=== PATIENT | male | born 1960 | race Caucasian/White ===

== ENCOUNTER 2018-10-21 13:20 | Emergency (ER) | payer OTHER ==
[2018-10-21 13:36] VITALS: BP 147/74
--- NOTE | 2018-10-21 14:09 | RAD ---
Indication:PATIENT HIT POSTERIOR OF HAND ON END OF SHOVEL LAST NIGHT. COULD NOT REMOVE RING. TECHNIQUE: 3 views of left hand COMPARISON:None FINDINGS/ impression: No acute fracture or dislocation. Couple of metallic nishant are seen in the soft tissue of the web of the fourth and fifth finger. Electronically signed by: Richard Campbell DO (10/21/2018 2:04 PM) [id number]
--- NOTE | 2018-10-21 14:19 | PHYS DOC ---
Past History Past Medical History: Hypertension, Other Past Surgical History: Other Alcohol Use: None Drug Use: None Adult General Chief Complaint Chief Complaint: HAND PROBLEM HPI HPI Patient is a 58 year old right handed male who presents with obtaining of injury to left hand yesterday while shoveling snow and ice and was hit by piece of ice on left hand. Patient complaining of moderate pain in his hand without other injuries and focal neurodeficit. Review of Systems Review of Systems Constitutional: Denies fever or chills [] Eyes: Denies change in visual acuity, redness, or eye pain [] HENT: Denies nasal congestion or sore throat [] Respiratory: Denies cough or shortness of breath [] Cardiovascular: No additional information not addressed in HPI [] GI: Denies abdominal pain, nausea, vomiting, bloody stools or diarrhea [] : Denies dysuria or hematuria [] Musculoskeletal: Denies back pain , reports joint pain [] Integument: Denies rash or skin lesions [] Neurologic: Denies headache, focal weakness or sensory changes [] Endocrine: Denies polyuria or polydipsia [] All other systems were reviewed and found to be within normal limits, except as documented in this note. Allergies Allergies Allergies Coded Allergies Type Severity Reaction Last Updated Verified ibuprofen Allergy Intermediate rash 10/22/14 Yes aspirin Allergy Mild red rash 10/22/14 Yes Physical Exam Physical Exam Constitutional: Well developed, well nourished, no acute distress, non-toxic appearance. [] HENT: Normocephalic, atraumatic Eyes: PERRLA, EOMI, conjunctiva normal, no discharge. [] Neck: Normal range of motion, no tenderness, supple, no stridor. [] Cardiovascular:Heart rate regular rhythm, no murmur [] Lungs & Thorax: Bilateral breath sounds clear to auscultation [] Skin: Warm, dry, no erythema, no rash. [] Back: No tenderness, no CVA tenderness. [] Extremities: Left hand without deformity, interpreted and fourth metacarpal area. Neurologic: Alert and oriented X 3, normal motor function, normal sensory function, no focal deficits noted. [] Psychologic: Affect normal, judgement normal, mood normal. [] Current Patient Data Vital Signs Vital Signs Date Time Temp Pulse Resp B/P (MAP) Pulse Ox O2 Delivery O2 Flow Rate FiO2 10/21/18 13:36 79 18 97 Room Air EKG EKG [] Radiology/Procedures Radiology/Procedures [place] [id number] IMAGING REPORT Signed PATIENT: RADHA CAGE ACCOUNT: [id number] : 1960 LOCATION: ER AGE: 58 SEX: M EXAM STATUS: REG ER ORD. PHYSICIAN: DESTINY JACKSON MD REASON: injury PROCEDURE: HAND LEFT 3V Indication:PATIENT HIT POSTERIOR OF HAND ON END OF SHOVEL LAST NIGHT. COULD NOT REMOVE RING. TECHNIQUE: 3 views of left hand COMPARISON:None FINDINGS/ impression: No acute fracture or dislocation. Couple of metallic nishant are seen in the soft tissue of the web of the fourth and fifth finger. Electronically signed by: Richard Campbell DO (10/21/2018 2:04 PM) [id number] DICTATED AND SIGNED BY: RICHARD CAMPBELL DO DATE: 10/21/18 1402 CC: DESTINY JACKSON MD; MOUNIKA LEON ~ Course & Med Decision Making Course & Med Decision Making Pertinent Imaging studies reviewed. (See chart for details) discharge: I've spoken with the patient and/or caregivers. I've explained the patient's condition, diagnosis and treatment plan based on information available to me at this time. I've answered the patient's and/or caregivers questions and addressed any concerns. The patient and/or caregivers have a good understanding the patient's diagnosis, condition and treatment plan as can be expected at this point. Vital signs have been stabilized. The patient's condition is stable for discharge from the emergency department. The patient will pursue further outpatient evaluation with her primary care provider or other designated consulting physician as outlined in the discharge instructions. Patient and/or caregivers are agreeable to this plan of care and follow-up instructions have been explained in detail. The patient and/or caregivers have received these instructions in written format and expressed understanding of these discharge instructions. The patient and her caregivers are aware that if any significant change in condition or worsening of symptoms should prompt him to immediately return to this of the closest emergency department. If an emergent department is not readily available I would encourage him to call 911. Sowmya Disclaimer Sowmya Disclaimer This electronic medical record was generated, in whole or in part, using a voice recognition dictation system. Departure Departure: Impression: Primary Impression: Injury of left hand Additional Impressions: Contusion of left hand Tobacco abuse Tobacco abuse counseling Disposition: HOME, SELF-CARE (at 1416) Condition: STABLE Referrals: MOUNIKA LEON (PCP) Patient Instructions: Hand Contusion, Smoking Cessation, Tips For Success Additional Instructions: Apply ice on left hand Follow-up with your primary care physician in 3-5 days Return to ER if not getting better Problem Qualifiers DESTINY JACKSON MD Oct 21, 2018 14:19
== END 2018-10-21 14:19 | disposition home or self-care (01) ==
LOC: ER 13:20
DX: S60.222A Contusion of left hand, initial encounter (principal); I10 Essential (primary) hypertension; Z72.0 Tobacco use; Z71.6 Tobacco abuse counseling; Z88.6 Allergy status to analgesic agent; W22.8XXA Striking against or struck by other objects, initial encounter; Y93.H1 Activity, digging, shoveling and raking; Y92.89 Other specified places as the place of occurrence of the external cause; Y99.8 Other external cause status
CPT/HCPCS: 73130; 99283

== ENCOUNTER 2021-08-02 20:06 | Emergency (ER) | payer OTHER ==
[~2021-08-02] VITALS: Ht 170.2 cm; Wt 55.5 kg
[2021-08-02] MEDS ORDERED: GELATIN SPONGE SIZE 12-7MM SPONGE. ONE (20:23)
[2021-08-02] MEDS ORDERED: GELATIN SPONGE SIZE 100. TP ONE (20:30)
[2021-08-02] MEDS ORDERED: GELATIN SPONGE SIZE 12-7MM SPONGE. TP ONE (20:45)
--- NOTE | 2021-08-02 21:24 | PHYS DOC ---
Past History Past Medical History: Hypertension, Other (ALIS LINN APRN) Past Surgical History: Other Additional Past Surgical Histo: BACK SX (ALIS LINN APRN) Alcohol Use: None Drug Use: None (ALIS LINN APRN) Adult General Chief Complaint Chief Complaint: LOWEREXTREMITY INJURY HPI HPI Patient is a 61-year-old male patient presenting to the ED today complaining of bleeding from a varicose vein. Patient states he took a shower and was wiping himself with a towel and accidentally nicked a varicose vein behind the left knee. Patient states he is on aspirin 1 mg daily. (ALIS LINN APRN) Review of Systems Review of Systems Constitutional: Denies fever or chills [] Musculoskeletal: Denies back pain or joint pain [] Integument: Reports bleeding from a varicose vein Neurologic: Denies headache, focal weakness or sensory changes [] All other systems were reviewed and found to be within normal limits, except as documented in this note. (ALIS LINN APRN) Current Medications Current Medications Current Medications Medications (Trade) Dose Ordered Sig/Heber Start Time Stop Time Status Last Admin Dose Admin Gelatin (Gelfoam Size 12-7mm) 1 each 1X ONCE 08/02/21 20:45 08/02/21 20:46 DC 08/02/21 20:44 1 EACH Gelatin (Gelfoam Size 100) 1 each 1X ONCE 08/02/21 20:30 08/02/21 20:37 DC 08/02/21 20:24 1 EACH Lidocaine/ Epinephrine (Xylocaine 1%-Epi 1:100,000) 20 ml 1X ONCE 08/02/21 21:30 08/02/21 21:31 08/02/21 21:04 20 ML (ALIS LINN APRN) Allergies Allergies Allergies Coded Allergies Type Severity Reaction Last Updated Verified ibuprofen Allergy Intermediate rash 10/22/14 Yes (ALIS LINN APRN) Physical Exam Physical Exam Constitutional: Well developed, well nourished, no acute distress, non-toxic appearance. [] Skin: Small amount of continuous bleeding noted from a varicose vein behind the left knee. Full range of motion to the left knee. +2 left pedal pulse. Cap r efill less than 2 seconds to left toes. Pressure being applied to the bleeding area Back: No tenderness, no CVA tenderness. [] Extremities: No tenderness, no cyanosis, no clubbing, ROM intact, no edema. [] Neurologic: Alert and oriented X 3, normal motor function, normal sensory function, no focal deficits noted. [] Psychologic: Affect normal, judgement normal, mood normal. [] (ALIS LINN APRN) Current Patient Data Vital Signs Vital Signs Date Time Temp Pulse Resp B/P (MAP) Pulse Ox O2 Delivery O2 Flow Rate FiO2 08/02/21 20:12 98.0 62 16 95/49 (64) 95 Room Air (ALIS LINN APRN) EKG EKG [] (ALIS LINN APRN) Radiology/Procedures Radiology/Procedures [] (ALIS LINN APRN) Heart Score C/O Chest Pain: N/A Risk Factors: Risk Factors: DM, Current or recent (<one month) smoker, HTN, HLP, family history of CAD, obesity. Risk Scores: Risk Factors: DM, Current or recent (<one month) smoker, HTN, HLP, family history of CAD, obesity. (ALIS LINN JAI ALAI PLAYER) Course & Med Decision Making Course & Med Decision Making Pertinent Labs and Imaging studies reviewed. (See chart for details) This is a 61-year-old male patient on aspirin presenting today with bleeding from a varicose vein behind the left knee. Pressure was attempted to stop the bleeding with no success. Gelfoam was also tried with no success. Lidocaine with epinephrine was injected to the area and the bleeding stopped. Patient was monitored for a few more minutes. Once the bleeding had completely stopped the area was covered and patient was discharged to home. Tetanus is up-to-date. (ALIS LINN JAI ALAI PLAYER) Course & Med Decision Making Did not see or evaluate patient. Did not discuss patient with YARD CLERK. Agree with YARD CLERK's work-up and disposition per note. (LOU ALARCON MD) Dragon Disclaimer Dragon Disclaimer This electronic medical record was generated, in whole or in part, using a voice recognition dictation system. (ALIS LINN APRN) Departure Departure: Impression: Primary Impression: Bleeding from varicose vein Disposition: HOME / SELF CARE / HOMELESS Condition: STABLE Referrals: MOUNIKA LEON (PCP) Follow-up with your doctor in 1 week Patient Instructions: Bleeding Varicose Veins Additional Instructions: You had a bleeding varicose vein that was stopped in the emergency room. Please follow-up with your primary care doctor next week. Keep the area clean and dry. You can remove the dressing in the next 24 hours if there is no drainage. Come back to the ED at any point symptoms recur ALIS LINN APRN Aug 02, 2021 21:24 LOU ALARCON MD Aug 02, 2021 23:08
[2021-08-02 21:30] VITALS: BP 127/68
[2021-08-02] MEDS ORDERED: LIDOCAINE 1%/EPI 1:100,000 20 ML VIAL. IJ ONE (21:30)
== END 2021-08-02 21:28 | disposition home or self-care (01) ==
LOC: ER 21:28
DX: I83.892 Varicose veins of left lower extremity with other complications (principal); I10 Essential (primary) hypertension; Z88.6 Allergy status to analgesic agent
CPT/HCPCS: 99283-25